=== PATIENT | female | born 1990 | race Caucasian/White ===

== ENCOUNTER 2023-07-23 15:52 | Emergency (ER) | payer BC ==
[~2023-07-23] VITALS: Ht 162.6 cm; Wt 91.0 kg
[2023-07-23] MEDS ORDERED: amlodipine (16:03)
[2023-07-23 16:04] VITALS: O2SAT 99
[2023-07-23] MEDS ORDERED: IBUPROFEN 600MG TABLET PO ONE (18:15)
[2023-07-23] MEDS ORDERED: HYDROCODONE/ACETAMINOPHEN 5/325MG TABLET PO ONE (18:15)
[2023-07-23] MEDS ORDERED: IBUP-2028 MT (19:05)
[2023-07-23 19:57] VITALS: BP 148/99; PULSE 107; RESP 20; TEMP 98
== END 2023-07-23 19:58 | disposition home or self-care (01) ==
LOC: ER 15:52
DX: S53.402A Unspecified sprain of left elbow, initial encounter (principal); I10 Essential (primary) hypertension; W10.9XXA Fall (on) (from) unspecified stairs and steps, initial encounter; Y93.61 Activity, american tackle football; Y92.89 Other specified places as the place of occurrence of the external cause; Y99.8 Other external cause status
CPT/HCPCS: 73080; 73090; 81025; 99284